=== PATIENT | female | born 1955 | race Caucasian/White ===

== ENCOUNTER 2019-11-22 14:28 | Outpatient (CLI) | payer MEDICARE, MEDICAID, SELFPAY ==
--- NOTE | 2019-11-28 14:29 | WPDPFTINT ---
PFT Interpretation PFT Interpretation: This PFT met all criteria for ATS standards and reproducibility FEV/FVC post bronchodilator 51% FEV1 675 or 1.38 liters FVC 95% or 2.69 liters TLC 131% or 6.11 liters RV 192% RV/TLC 57% DLCO 59% or 10.6 liter when adjusted for alveolar volume but not adjusted for hemoglobin Flow volume loops showed expiratory coving Impression: Moderate airflow obstruction with hyper inflation, air trapping and moderately reduced diffusion capacity. This corresponds with COPD. Clinical correlation is advised.
--- NOTE | 2019-11-28 14:31 | WPDSIXMINUTE ---
Six Minute Walk Six Minute Walk: The patients O2 sats started at 99% and dropped as low as 92% Total walk distance 365.76 meters conclusion: This patient does not qualify for home oxygen use
== END 2019-11-22 14:29 | disposition home or self-care (01) ==
LOC: ANHPFT 14:40
PROVIDERS: PCP Internal Medicine; Visit Provider Nurse Practitioner
DX: J44.9 Chronic obstructive pulmonary disease, unspecified (principal)
CPT/HCPCS: 94060; 94726; 94729

== ENCOUNTER 2023-08-11 11:10 | Emergency (ER) | payer OTHER, SELFPAY ==
[2023-08-11] VITALS (16 sets, daily range): BP systolic 124–175; BP diastolic 40–99; PULSE 72–105; RESP 16–20; TEMP 36.6–36.7; O2SAT 97–99
--- NOTE | ~2023-08-11 | CT_ITS ---
CT of the Abdomen and Pelvis: Indication: Abdominal pain Technique: 2.5 mm axial scans were obtained through the abdomen and pelvis following intravenous adm inistration of 90 cc of Omnipaque 350. Dose reduction technique was used on this scan by utilizing au tomated exposure control and iterative reconstruction technique. The dose-length product (DLP) was 17 8.97 mGy-cm. Findings: Scans through the lung bases demonstrate small hiatal hernia. The liver, spleen, pancreas, gallbladder, adrenals and kidneys are within normal limits. There are at herosclerotic calcifications of the aorta. No lymphadenopathy. No bowel obstruction. Possible mild wall thickening of distal large bowel with minimal enlargement of the vasa recta. No abscess or free air. Images through the pelvis were performed. Urinary bladder unremarkable. No adnexal mass seen. No asci constance. Impression: Questionable mild infectious/inflammatory colitis. Correlate clinically. Small hiatal hernia. Reviewed, dictated and finalized at [facility]. Impression: Questionable mild infectious/inflammatory colitis. Correlate clinically. Small hiatal hernia.
--- NOTE | 2023-08-11 11:50 | PC.NURSE ---
Spoke with pt about urine sample. Pt states she isn't able to go to the bathroom with out having diarrhea. Spoke with pt about catheterizing pt. Pt states due to her rectocele she does not want to do catheter with out speaking to the doctor first. Pt states she will speak with doctor when they come in.
[2023-08-11 12:02] LABS: Basophils Absolute Auto 0.1 K/mm3 (0.0-0.1); Basophils Percent Auto 0.3 % (0.2-1.2); Eosinophils Percent Auto 0.1 % (0-4.4); Hematocrit 44.6 % (37.0-47.0); Hemoglobin 14.4 g/dL (12.0-15.0); Immature Granulocyte Absolute 0.07 K/mm3 (0.00-0.031); Immature Granulocyte Percent A 0.4 % (0-0.5); Lymphocytes Absolute Auto 1.81 K/mm3 (0.9-3.2); Mean Corpuscular HGB Conc 32.3 g/dl (32-36); Mean Corpuscular Hemoglobin 27.4 pg (26-34); Mean Platelet Volume 9.9 fl (7.4-10.4); Monocytes Absolute Auto 1.6 K/mm3 (0.1-0.6); Monocytes Percent Auto 8.7 % (2.6-8.5); Neutrophils Absolute Auto 14.6 K/mm3 (1.3-6.7); Neutrophils Percent Auto 80.5 % (45.5-73.1); Platelet Count Result 499 k/mm3 (150-375); Red Blood Count 5.25 M/mm3 (4.2-5.4); Red Cell Distribution Width 14.9 % (11.5-14.5); White Blood Count 18.1 K/mm3 (4.5-10.0)
--- NOTE | 2023-08-11 12:07 | ED.GENADULT ---
HPI - General Adult General Chief complaint: Nausea/Vomiting/Diarrhea Stated complaint: abd pain, dizziness, n/v/d, 30lb weight loss 1 mo Time Seen by Provider: 08/11/23 12:02 History of Present Illness HPI narrative: Patient is a 68-year-old female with history of crest syndrome, COPD here with diarrhea, abdominal pain, weight loss. She states that over the last 3 months she has had intermittent constipation and diarrhea. Her diarrhea this episode has lasted approximately 2 days, is severe and associated with some nausea and an episode of vomiting yesterday. She denies any fever chills. She denies any recent antibiotic use. She does note that she was hospitalized at [facility] over the weekend for similar symptoms. At that time she had been having some abnormal findings on her EKG, they admitted her to the hospital for stress test and possible colonoscopy however she had a poor experience with the GI doctor many years ago and did not want to be seen by him. She states that many years ago she saw this GI doctor, had a colonoscopy and they had assumed that her findings were most consistent with Crohn's disease. She decided to seek a IBD specialist through [facility], when she followed up with them they told her she did not have Crohn's disease and she later found out that she had crest syndrome and the oral pathologist suspected she had bowel involvement. She has somewhat been lost to follow-up due to multiple issues with insurance and coverage. Her last colonoscopy was more than 5 years ago. They note a history of a prior precancerous polyp on colonoscopy. She does have a known history of a severe rectocele, has tried to seek care for surgery however she needed to pay a large amount out of pocket and was unable to get the surgery performed. She notes that due to her rectocele she has been largely bed bound for the last several years because this is the only position where she can keep her rectocele in position. She notes some faint blood on her toilet paper when she wipes but no bright red blood per rectum during bowel movements or clots. Family notes that patient has lost approximately 30 lb in the last 3 months due to her intermittent abdominal issues. Related Data Allergies Allergy/AdvReac Type Severity Reaction Status Date / Time codeine Allergy Itching Verified 08/11/23 11:50 erythromycin base Allergy Other Verified 08/11/23 11:50 metoprolol AdvReac Diarrhea Verified 08/11/23 11:50 Review of Systems Review of Systems: All systems reviewed & are unremarkable except as noted in HPI and below PMFSH Past Medical History Medical History (Updated 08/11/23 @ 15:49 by Viry Leo MD) Prolapsed bladder Rectocele Surgical History Surgical History (Updated 01/14/19 @ 13:24 by Navid Harp) No significant past surgical history Social History Social History Gender identity (if verbalized by the patient): Female Exam Narrative: GENERAL: Well-appearing, cachectic, and in no acute distress. HEAD: Normocephalic, atraumatic. EYES: PERRLA and EOMI. ENT: Nares clear. Mucous membranes moist. NECK: Supple. CHEST: Clear to auscultation. No respiratory distress. HEART: Regular rate and rhythm. Normal peripheral pulses. ABDOMEN: Soft, diffuse abdominal tenderness, no rebound or guarding, nonlocalized pain., nondistended. EXTREMITIES: Normal range of motion. No edema. SKIN: Warm, dry, no rash. NEURO: No focal deficits. Alert and oriented x3. PSYCH: Normal mood and affect. Course Course Emergency Course: Chart review performed. Patient here for weight loss, abdominal pain, NVD, dizziness and 30 lb weight loss. Triage vitals grossly normal. Lab work and imaging reviewed by blood cell count of 18.1. Electrolytes grossly normal, lipase normal. CT abdomen pelvis shows questionable mild infectious/inflammatory colitis. Small hiatal hernia. Will talk about possible admission with our hospitalist service for [facility]the
[2023-08-11 12:18] LABS: Alanine Aminotransferase 16 U/L (6-35); Albumin Level 4.3 g/dL (3.5-5.1); Alkaline Phosphatase 129 U/L (38-126); Anion Gap 16 mmol/L (4-12); Aspartate Amino Transferase 29 U/L (14-36); Blood Urea Nitrogen 16 mg/dL (7-17); Calcium 9.4 mg/dL (8.4-10.2); Carbon Dioxide 25 mmol/L (22-30); Chloride 97 mmol/L (98-107); Estimated CRCL calculation 41 ml/min; Estimated Glomerular Filt Rate > 60; Glucose 88 mg/dL (65-110); Lipase 127 U/L (23-300); Potassium 3.4 mmol/L (3.4-5.0); Sodium 138 mmol/L (137-145)
--- NOTE | 2023-08-11 12:50 | ECG_ITS ---
Test Date: 2023-08-11 13:32:03 Measurements Intervals [place] Rate: 78 P: 85 ID: [id number] QRS: 2 QRSD: 141 T: 70 QT: 435 QTc: 498 Interpretive Statements SINUS RHYTHM LEFT BUNDLE BRANCH BLOCK [120+ ms QRS DURATION, 80+ ms Q/S IN V1/V2, 85+ ms R IN I/aVL/V5/V6] No previous ECG available for comparison Electronically Signed On 08-12-2023 15:52:10 CDT by Rojas Kilgore M.D.
[2023-08-11] MEDS: LACTATED RINGERS 1,000 ML 999 ML IV CONT (13:20)
[2023-08-11] MEDS: ONDANSETRON INJ 4 MG/2 ML VIAL IV PUSH (13:23)
[2023-08-11 14:47] LABS: Appearance Urine Clear (Clear); Bacteria Urine 2+ /hpf; Bilirubin Urine Negative (Negative); Blood Urine Non-Hemolyzed Trace (Negative); Color Urine Yellow (Yellow); Glucose Urine UA Negative (Negative); Hyaline Casts Urine Present /lpf; Ketones Urine 2+ mg/dL (Negative); Leukocyte Esterase Ur 1+ LEU/UL (Negative); Nitrate Urine Negative (Negative); Protein Urine Trace mg/dL (Negative); Specific Grav Ur 1.075 (1.001-1.035); Squamous Epithelial Cell Urine Few /hpf (Few)
[2023-08-11 14:48] LABS: Add Urine Microscopic? YES
[2023-08-11 14:55] LABS: CRP 5.5 mg/dL (<1.0)
== END 2023-08-11 16:20 | disposition home or self-care (01) ==
PROVIDERS: Emergency Medicine; Emergency Provider Student in an Organized Health Care Education/Training Program; PCP Internal Medicine
DX: K52.9 Noninfective gastroenteritis and colitis, unspecified (principal); J44.9 Chronic obstructive pulmonary disease, unspecified; M34.1 CR(E)ST syndrome; N81.10 Cystocele, unspecified; N81.6 Rectocele; K44.9 Diaphragmatic hernia without obstruction or gangrene; R82.998 Other abnormal findings in urine
CPT/HCPCS: 36415; 74177; 80053; 81001; 83690; 85025; 86140; 87077; 87086; 87088; 87186; 93005; 96361; 96374; 99284; J2405; J7120; Q9967